=== PATIENT | male | born 1955 | race Hispanic/Latino ===

== ENCOUNTER → 2017-05-18 | Day surgery (SDC) | payer OTHER ==
[~2017-05-18] VITALS: Ht 167.6 cm; Wt 97.5 kg
[~2017-05-18] MED LIST: FLOMAX0.4 M1 PO; LOSARTAN POTASS50 M1 PO; OMEPRAZOLE40 M1 PO; RANITIDINE HCL300 M3 PO
--- NOTE | 2017-05-18 12:22 | Operative Report ---
Operative/Inv Procedure Report Surgery Date: 05/18/17 Name of Procedure: Right shoulder arthroscopic rotator cuff repair Right shoulder biceps tenotomy Right shoulder distal clavicle excision Right shoulder subacromial decompression Pre-Operative Diagnosis: Right shoulder rotator cuff tear Right shoulder biceps tendon tear Right shoulder acromioclavicular joint arthritis Post-Operative Diagnosis: Same Estimated Blood Loss: less than 50ml Surgeon/Enterprise Mobility Architect: SIMIN SHAW,SHIRA SIMMONS Anesthesia: general endotracheal tube IV Fluids: See anesthesia record Implants: [employer] suture anchors Drains: None Specimens: None Complications: None Condition: Stable Operative Indication: Patient's 62-year-old male who has had right shoulder pain for several months. An MRI showed a full-thickness rotator cuff tear. He was indicated for surgical arthroscopic repair. The risks and benefits of procedure discussed the patient detail he wished to proceed. Skilled set of hands was necessary provided by physician pediatric dental assistant Vishal Ackerman weighted with camera positioning suture management and implant assembly throughout the case. Operative/Procedure Note Note: Once informed consent was obtained and the correct limb was identified the patient brought to operative room placed on table supine position. After administration of general endotracheal anesthesia the patient was placed in a beachchair position for right shoulder arthroscopy. The right shoulder was prepped and draped in usual sterile fashion. To begin the procedure standard arthropathy portals made posteriorly and the scope was introduced in the glenoid humeral joint. Diagnostic arthroscopy was carried out. Subscapularis tendon was intact. Biceps tendon was completely torn and partially retracted. The anterior and posterior labrum were intact. The biceps anchor was intact. There was a negative drive-through sign. The glenoid and humeral head cartilage were intact with no significant chondromalacia. There are no loose bodies in the inferior pouches. The camera was directed laterally and there was a large full- thickness rotator cuff tear of the supraspinatus tendon. A anterior portal was made lateral to the coracoid process and a shaving device was introduced into the joint. The rotator cuff was freshened and debrided of any devitalized tissue. The biceps tendon and tenotomy was completed and the biceps stump was debrided. There was no biceps tendon left in the joint. A miniature set builder cautery device was then brought in and the bursa was freed up and liberated from the rotator cuff tendon for the repair and for the mobilization of the tendon. Next a lateral portal was made under direct visualization and the bare spot on the humeral head and greater tuberosity was abraded with the 5.5 bone cutter shaving device in order to obtain a bleeding bony surface for the repair of the rotator cuff. At this point the arthroscope was brought into the subacromial space and and fourth accessory portals made posterior medially. The scope was brought into the repair of the rotator cuff. 2 5. 5 suture anchors were placed at the articular margin of the bare spot. The sutures from the 5. 5 suture anchors were placed through the rotator cuff using a horizontal mattress configuration. These were all passed out through the anterior portal for suture management. Once we finish with the placement of the medial anchors 2 lateral row anchors were placed the posterior lateral anchor was placed first and the suture tape limbs from each of the medial anchors were crossed and placed through the lateral anchor. The posterior lateral anchor was then placed in the bone and the rotator cuff was tensioned down posteriorly. The same process repeated for the anterior lateral row anchor. The 2 fiber tape suture limbs were crisscrossed and brought through the lateral row anterior anchor. The anchor was placed in the bone and this afforded excellent tensioning of the rotator cuff back to the bare spot. Finally a single 4. 5 suture anchors placed at the anterior aspect of the articular margin and a horizontal mattress suture was placed through the rotator cuff and tied down. The shoulder was taken through a range of motion and the rotator cuff moved as a unit with the arm. A probe was used to checked the tension of the repair. The next step in the procedure was a acromioplasty. Using a 5.5 bone cutting device and acromioplasty is performed without complication. Through the anterior portal the 5.5 bone cutting device was placed into the acromioclavicular joint and a distal clavicle resection was performed with 10 mm of bone being resected off the distal clavicle. The acromion and the distal clavicle were co-planed. The shoulder was irrigated with saline solution. The R scopic portals were closed with 3-0 nylon interrupted sutures. The sterile dressing and sling was applied and the patient was awakened taken recovery room in stable condition.
== END ==
LOC: STS 01:00
DX: M75.121 Complete rotator cuff tear or rupture of right shoulder, not specified as traumatic (principal); M19.011 Primary osteoarthritis, right shoulder; M25.511 Pain in right shoulder; I10 Essential (primary) hypertension
CPT/HCPCS: J0171; J0690; J2250